=== PATIENT | female | born 1955 | race Two or more races ===

== ENCOUNTER → 2024-02-07 | Outpatient (CLI) | payer MEDICARE, SELFPAY ==
[2024-02-07 16:54] LABS: Amphetamine/Methamp Scrn,U Negative (Negative); Barbiturate Screen,Urine Negative (Negative); Benzodiazepines Screen,Urine Negative (Negative); Benzoylecgonine Screen, Ur Negative (Negative); Fentanyl Screen,Urine Negative (Negative); Opiate Screen,Urine Positive (Negative); THC Screen,Urine Negative (Negative)
== END | disposition home or self-care (01) ==
LOC: SLDO 15:46
PROVIDERS: PCP Registered Nurse; Referring Provider Registered Nurse; Visit Provider Registered Nurse
DX: Z79.891 Long term (current) use of opiate analgesic (principal)
CPT/HCPCS: 80307

== ENCOUNTER → 2024-02-14 | Outpatient (CLI) | payer MEDICARE, SELFPAY ==
[2024-02-14 13:23] LABS: Collection Type, Urine Clean Catch
[2024-02-14 13:44] LABS: Basophils % (Auto) 1 % (0-2.5); Eosinophils # (Auto) 0.3 Thou/mm3 (0.0-0.5); Eosinophils % (Auto) 4 % (0-10); Hematocrit 32.3 % (36.0-46.0); Hemoglobin 10.8 g/dL (12.0-16.0); Immature Granulocytes % (Auto) 1 % (0-0); Immature Granulocytes Auto 0.07 Thou/mm3 (0.00-0.00); Lymphocytes # (Auto) 2.8 Thou/mm3 (1.0-4.8); Lymphocytes % (Auto) 36 % (10-50); Mean Corpuscular HGB Conc 33.4 g/dl (31.0-37.0); Mean Corpuscular Hemoglobin 30.5 pg (25.0-35.0); Mean Corpuscular Volume 91 fL (80-100); Monocytes # (Auto) 0.7 Thou/mm3 (0.0-0.8); Monocytes % (Auto) 9 % (0-12); Neutrophils % (Auto) 51 % (37-80); Nucleated Red Blood Cell % 0 /100 WBC (0); Platelet Count 214 Thou/mm3 (140-440); Red Blood Count 3.54 Miln/mm3 (4.00-5.20); White Blood Count 7.8 Thou/mm3 (3.6-11.0)
[2024-02-14 13:48] LABS: Bilirubin,Urine Negative (Negative); Blood,Urine Negative (Negative); Clarity,Urine Clear (Clear/Hazy); Color,Urine Lt-Yellow (Lt Yel-Yel); Glucose, Urine Negative (Negative); Ketones,Urine Negative (Negative); Leukocyte Esterase,Urine Negative (Negative); Nitrite,Urine Negative (Negative); Protein,Urine 1+ (Neg - Trace); RBC,Urine 2 /hpf (0-3); Specific Gravity,Urine 1.013 (1.001-1.035); Squamous Epithelial Cell,Urine < 1 /hpf (0-5); Urobilinogen,Urine Negative mg/dL (0.0-1.0); WBC,Urine 2 /hpf (0-5)
[2024-02-14 14:07] LABS: Albumin, Serum 4.2 gm/dL (3.4-4.8); Anion Gap 3 (7-16); BUN/Creatinine Ratio 20 Ratio (12-20); Blood Urea Nitrogen 36 mg/dL (9-23); Calcium 9.5 mg/dL (8.3-10.6); Calcium (Corrected) 9.5 mg/dL (8.5-10.1); Carbon Dioxide 25.3 mMol/L (20.0-31.0); Chloride 110 mMol/L (98-107); Creatinine (Component) 1.8 mg/dL (0.6-1.3); Glucose 128 mg/dL (74-106); Osmolality,Calculated 285 (275-295); Phosphorous 3.9 mg/dL (2.4-5.1); Potassium 4.1 mMol/L (3.4-5.1); Sodium 138 mMol/L (136-145); eGFR 30 See Note
== END | disposition home or self-care (01) ==
LOC: COPL 12:55
PROVIDERS: PCP Registered Nurse; Referring Provider Internal Medicine; Visit Provider Internal Medicine
DX: N17.9 Acute kidney failure, unspecified (principal)
CPT/HCPCS: 36415; 80069; 81001; 85025

== ENCOUNTER → 2024-03-06 | Outpatient (CLI) | payer MEDICARE, SELFPAY ==
--- NOTE | 2024-03-06 15:47 | XR_ITS ---
Examination: Renal sonogram Renal Doppler sonographic evaluation of the kidneys Exam date and time: March 06, 2024 1600 hrs. Indications: Renal insufficiency, hypertension, clinical diagnosis renal artery stenosis Technique And Findings: Multiple grayscale sonographic images kidneys Assessment bilateral peak systolic arterial velocities, calculation resistive indices and renal aortic ratios No elevation of bilateral peak systolic arterial velocities No significant abnormal bilateral resistive indices Normal bilateral renal aortic ratios Impression: Small bilateral kidneys with renal cortical thinning No sonographic findings of renal artery stenosis
== END | disposition home or self-care (01) ==
PROVIDERS: PCP Internal Medicine; Referring Provider Internal Medicine; Visit Provider Internal Medicine
DX: N28.89 Other specified disorders of kidney and ureter (principal)
CPT/HCPCS: 93975

== ENCOUNTER → 2024-03-13 | Outpatient (CLI) | payer MEDICARE, SELFPAY ==
[2024-03-13 10:58] LABS: Collection Type, Urine Clean Catch; RBC,Urine 0 /hpf (0-3)
[2024-03-13 11:17] LABS: Basophils # (Auto) 0.1 Thou/mm3 (0.0-0.2); Basophils % (Auto) 1 % (0-2.5); Eosinophils # (Auto) 0.4 Thou/mm3 (0.0-0.5); Eosinophils % (Auto) 6 % (0-10); Hematocrit 35.3 % (36.0-46.0); Hemoglobin 12.1 g/dL (12.0-16.0); Immature Granulocytes % (Auto) 1 % (0-0); Immature Granulocytes Auto 0.06 Thou/mm3 (0.00-0.00); Lymphocytes # (Auto) 2.6 Thou/mm3 (1.0-4.8); Lymphocytes % (Auto) 32 % (10-50); Mean Corpuscular HGB Conc 34.3 g/dl (31.0-37.0); Mean Corpuscular Hemoglobin 30.5 pg (25.0-35.0); Mean Corpuscular Volume 89 fL (80-100); Monocytes # (Auto) 0.6 Thou/mm3 (0.0-0.8); Monocytes % (Auto) 8 % (0-12); Neutrophils # (Auto) 4.2 Thou/mm3 (1.8-7.7); Neutrophils % (Auto) 53 % (37-80); Nucleated Red Blood Cell % 0 /100 WBC (0); Platelet Count 225 Thou/mm3 (140-440); RDW Standard Deviation 42.7 fL (36.4-46.3); Red Blood Count 3.97 Miln/mm3 (4.00-5.20)
[2024-03-13 11:19] LABS: Bacteria,Urine Rare; Bilirubin,Urine Negative (Negative); Blood,Urine Negative (Negative); Clarity,Urine Clear (Clear/Hazy); Color,Urine Lt-Yellow (Lt Yel-Yel); Glucose, Urine Negative (Negative); Ketones,Urine Negative (Negative); Leukocyte Esterase,Urine Negative (Negative); Nitrite,Urine Negative (Negative); PH,Urine 6.5 (5.0-7.0); Protein,Urine 1+ (Neg - Trace); Specific Gravity,Urine 1.007 (1.001-1.035); Squamous Epithelial Cell,Urine 1 /hpf (0-5); Urobilinogen,Urine Negative mg/dL (0.0-1.0); WBC,Urine < 1 /hpf (0-5)
[2024-03-13 11:30] LABS: Albumin, Serum 4.3 gm/dL (3.4-4.8); Anion Gap 5 (7-16); BUN/Creatinine Ratio 20 Ratio (12-20); Blood Urea Nitrogen 26 mg/dL (9-23); Calcium 9.3 mg/dL (8.3-10.6); Calcium (Corrected) 9.3 mg/dL (8.5-10.1); Carbon Dioxide 26.6 mMol/L (20.0-31.0); Chloride 105 mMol/L (98-107); Creatinine (Component) 1.3 mg/dL (0.6-1.3); Glucose 114 mg/dL (74-106); Osmolality,Calculated 279 (275-295); Phosphorous 3.2 mg/dL (2.4-5.1); Potassium 4.5 mMol/L (3.4-5.1); Sodium 137 mMol/L (136-145); eGFR 45 See Note
== END | disposition home or self-care (01) ==
LOC: COPL 10:15
PROVIDERS: PCP Family Medicine; Referring Provider Internal Medicine; Visit Provider Internal Medicine
DX: N17.9 Acute kidney failure, unspecified (principal)
CPT/HCPCS: 36415; 80069; 81001; 85025

== ENCOUNTER → 2024-05-07 | Outpatient (CLI) | payer MEDICARE, SELFPAY ==
[2024-05-07 17:53] LABS: Amphetamine/Methamp Scrn,U Negative (Negative); Barbiturate Screen,Urine Negative (Negative); Benzodiazepines Screen,Urine Negative (Negative); Benzoylecgonine Screen, Ur Negative (Negative); Fentanyl Screen,Urine Negative (Negative); Opiate Screen,Urine Positive (Negative); THC Screen,Urine Negative (Negative)
== END | disposition home or self-care (01) ==
LOC: SLDO 15:36
PROVIDERS: PCP Registered Nurse; Referring Provider Registered Nurse; Visit Provider Registered Nurse
DX: Z79.891 Long term (current) use of opiate analgesic (principal)
CPT/HCPCS: 80307

== ENCOUNTER → 2024-05-12 | Outpatient (CLI) | payer MEDICARE, SELFPAY ==
[2024-05-12 13:46] LABS: Glucose Estimated Average 111 mg/dL (80-131); Hemoglobin A1C 5.5 % Hgb (4.8-6.0)
[2024-05-12 13:54] LABS: Alanine Aminotransferase 22 U/L (10-49); Albumin, Serum 4.4 gm/dL (3.4-4.8); Albumin/Globulin Ratio 1.6 (1.2-2.2); Alkaline Phosphatase 92 U/L (46-116); Anion Gap 8 (7-16); Aspartate Amino Transferase 27 U/L (0-34); BUN/Creatinine Ratio 15 Ratio (12-20); Bilirubin,Total 0.4 mg/dL (0.3-1.2); Blood Urea Nitrogen 27 mg/dL (9-23); Calcium 9.9 mg/dL (8.3-10.6); Calcium (Corrected) 9.9 mg/dL (8.5-10.1); Carbon Dioxide 25.7 mMol/L (20.0-31.0); Chloride 106 mMol/L (98-107); Creatinine (Component) 1.8 mg/dL (0.6-1.3); Free T4 (Free Thyroxine) 1.38 ng/dL (0.89-1.76); Globulin 2.8 gm/dL (2.3-3.5); Glucose 115 mg/dL (74-106); Osmolality,Calculated 285 (275-295); Potassium 4.2 mMol/L (3.4-5.1); Sodium 140 mMol/L (136-145); Thyroid Stimulating Hormone 2.16 uIU/mL (0.55-4.78); Total Protein 7.2 gm/dL (5.7-8.2); eGFR 30 See Note
== END | disposition home or self-care (01) ==
LOC: COPL 12:22
PROVIDERS: PCP Family Medicine; Referring Provider Registered Nurse; Visit Provider Registered Nurse
DX: R94.4 Abnormal results of kidney function studies (principal); E03.9 Hypothyroidism, unspecified; Z68.30 Body mass index [BMI] 30.0-30.9, adult
CPT/HCPCS: 36415; 80053; 83036; 84439; 84443

== ENCOUNTER → 2024-06-09 | Outpatient (CLI) | payer MEDICARE, SELFPAY ==
[2024-06-09 15:01] LABS: Collection Type, Urine Clean Catch; WBC,Urine 0 /hpf (0-5)
[2024-06-09 15:52] LABS: Basophils # (Auto) 0.1 Thou/mm3 (0.0-0.2); Basophils % (Auto) 1 % (0-2.5); Eosinophils # (Auto) 0.4 Thou/mm3 (0.0-0.5); Eosinophils % (Auto) 4 % (0-10); Hematocrit 35.4 % (36.0-46.0); Immature Granulocytes % (Auto) 1 % (0-0); Immature Granulocytes Auto 0.06 Thou/mm3 (0.00-0.00); Lymphocytes # (Auto) 3.8 Thou/mm3 (1.0-4.8); Lymphocytes % (Auto) 41 % (10-50); Mean Corpuscular HGB Conc 33.9 g/dl (31.0-37.0); Mean Corpuscular Volume 89 fL (80-100); Monocytes # (Auto) 0.7 Thou/mm3 (0.0-0.8); Monocytes % (Auto) 7 % (0-12); Neutrophils # (Auto) 4.3 Thou/mm3 (1.8-7.7); Neutrophils % (Auto) 46 % (37-80); Nucleated Red Blood Cell % 0 /100 WBC (0); Platelet Count 253 Thou/mm3 (140-440); RDW Standard Deviation 45.4 fL (36.4-46.3); White Blood Count 9.3 Thou/mm3 (3.6-11.0)
[2024-06-09 15:54] LABS: Bilirubin,Urine Negative (Negative); Blood,Urine Negative (Negative); Clarity,Urine Clear (Clear/Hazy); Color,Urine Lt-Yellow (Lt Yel-Yel); Glucose, Urine Negative (Negative); Ketones,Urine Negative (Negative); Leukocyte Esterase,Urine Negative (Negative); Nitrite,Urine Negative (Negative); Protein,Urine Trace (Neg - Trace); RBC,Urine 1 /hpf (0-3); Specific Gravity,Urine 1.008 (1.001-1.035); Squamous Epithelial Cell,Urine < 1 /hpf (0-5); Urobilinogen,Urine Negative mg/dL (0.0-1.0)
[2024-06-09 16:03] LABS: Albumin, Serum 4.2 gm/dL (3.4-4.8); Anion Gap 6 (7-16); BUN/Creatinine Ratio 16 Ratio (12-20); Blood Urea Nitrogen 26 mg/dL (9-23); Calcium 9.7 mg/dL (8.3-10.6); Calcium (Corrected) 9.7 mg/dL (8.5-10.1); Carbon Dioxide 26.6 mMol/L (20.0-31.0); Chloride 107 mMol/L (98-107); Creatinine (Component) 1.6 mg/dL (0.6-1.3); Glucose 106 mg/dL (74-106); Osmolality,Calculated 284 (275-295); Phosphorous 3.9 mg/dL (2.4-5.1); Potassium 3.8 mMol/L (3.4-5.1); Sodium 140 mMol/L (136-145); eGFR 35 See Note
== END | disposition home or self-care (01) ==
LOC: COPL 14:37
PROVIDERS: PCP Registered Nurse; Referring Provider Internal Medicine; Visit Provider Internal Medicine
DX: I12.9 Hypertensive chronic kidney disease with stage 1 through stage 4 chronic kidney disease, or unspecified chronic kidney disease (principal); N18.30 Chronic kidney disease, stage 3 unspecified
CPT/HCPCS: 36415; 80069; 81001; 85025

== ENCOUNTER → 2024-07-01 | Outpatient (CLI) | payer MEDICARE, SELFPAY ==
--- NOTE | 2024-07-01 13:30 | XR_ITS ---
Examination: Retroperitoneal ultrasound, complete Technique: Multiple high resolution grayscale images of the retroperitoneum obtained, including kidneys and bladder. Exam date and time:July 01, 2024 1327 hours INDICATIONS: History prolapsed bladder 5 months FINDINGS: Right kidney 7.9 cm cortex 1.6 cm Left kidney 7.4 cm cortex 1.2 cm 4 mm calculus upper pole right kidney No hydronephrosis No bladder mass or bladder calculi Bladder prevoid volume 134 cc postvoid volume 0 cc IMPRESSION: Bilateral renal cortical thinning Small kidneys bilaterally 4 mm nonobstructing upper pole right renal calculus
== END | disposition home or self-care (01) ==
PROVIDERS: PCP Registered Nurse; Referring Provider Internal Medicine; Visit Provider Internal Medicine
DX: N27.1 Small kidney, bilateral (principal); N20.0 Calculus of kidney; N28.89 Other specified disorders of kidney and ureter; N17.9 Acute kidney failure, unspecified
CPT/HCPCS: 76770

== ENCOUNTER → 2024-07-22 | Outpatient (CLI) | payer MEDICARE, SELFPAY ==
--- NOTE | 2024-07-22 10:15 | XR_ITS ---
Examination: Screening digital mammography, bilateral Computer aided detection 3-D breast Tomosynthesis, bilateral Date and time of exam: July 22, 2024 0959 hours Compared to mammograms dating to December 05, 2018 Indication: Screening Technique: Nonmagnified MLO, CC views of the breasts to been obtained, reconstructed from 3-D Tomosynthesis images. R2 computer aided detection program utilized for evaluation of suspicious masses and/or abnormal calcifications. 3-D Tomosynthesis images obtained. Findings: Scattered areas of fibroglandular density. Benign calcifications. No interval suspicious masses Impression: BI-RADS category II: Benign Findings. Recommend 1 year follow-up mammogram.
== END | disposition home or self-care (01) ==
LOC: CDIM 09:45
PROVIDERS: Referring Provider Registered Nurse; Visit Provider Registered Nurse
DX: Z12.31 Encounter for screening mammogram for malignant neoplasm of breast (principal); R92.323 Mammographic fibroglandular density, bilateral breasts; R92.1 Mammographic calcification found on diagnostic imaging of breast
CPT/HCPCS: 77063; 77067

== ENCOUNTER → 2024-08-11 | Outpatient (CLI) | payer MEDICARE, SELFPAY ==
[2024-08-11 10:29] LABS: Collection Type, Urine Clean Catch
[2024-08-11 10:44] LABS: Basophils # (Auto) 0.1 Thou/mm3 (0.0-0.2); Basophils % (Auto) 1 % (0-2.5); Eosinophils # (Auto) 0.7 Thou/mm3 (0.0-0.5); Eosinophils % (Auto) 9 % (0-10); Hematocrit 35.9 % (36.0-46.0); Hemoglobin 12.1 g/dL (12.0-16.0); Immature Granulocytes % (Auto) 1 % (0-0); Immature Granulocytes Auto 0.04 Thou/mm3 (0.00-0.00); Lymphocytes # (Auto) 3.1 Thou/mm3 (1.0-4.8); Lymphocytes % (Auto) 39 % (10-50); Mean Corpuscular HGB Conc 33.7 g/dl (31.0-37.0); Mean Corpuscular Hemoglobin 30.2 pg (25.0-35.0); Mean Corpuscular Volume 90 fL (80-100); Monocytes # (Auto) 0.6 Thou/mm3 (0.0-0.8); Monocytes % (Auto) 8 % (0-12); Neutrophils # (Auto) 3.3 Thou/mm3 (1.8-7.7); Neutrophils % (Auto) 42 % (37-80); Nucleated Red Blood Cell % 0 /100 WBC (0); Platelet Count 253 Thou/mm3 (140-440); RDW Standard Deviation 45.1 fL (36.4-46.3); Red Blood Count 4.01 Miln/mm3 (4.00-5.20); White Blood Count 7.8 Thou/mm3 (3.6-11.0)
[2024-08-11 10:52] LABS: Bilirubin,Urine Negative (Negative); Blood,Urine Negative (Negative); Clarity,Urine Clear (Clear/Hazy); Color,Urine Lt-Yellow (Lt Yel-Yel); Glucose, Urine Negative (Negative); Ketones,Urine Negative (Negative); Leukocyte Esterase,Urine Negative (Negative); Nitrite,Urine Negative (Negative); PH,Urine 7.5 (5.0-7.0); Protein,Urine 1+ (Neg - Trace); RBC,Urine 1 /hpf (0-3); Specific Gravity,Urine 1.014 (1.001-1.035); Squamous Epithelial Cell,Urine 1 /hpf (0-5); Urobilinogen,Urine Negative mg/dL (0.0-1.0); WBC,Urine 1 /hpf (0-5)
[2024-08-11 11:07] LABS: Albumin, Serum 4.3 gm/dL (3.4-4.8); Anion Gap 8 (7-16); BUN/Creatinine Ratio 18 Ratio (12-20); Blood Urea Nitrogen 32 mg/dL (9-23); Calcium 9.5 mg/dL (8.3-10.6); Calcium (Corrected) 9.5 mg/dL (8.5-10.1); Carbon Dioxide 27.7 mMol/L (20.0-31.0); Chloride 104 mMol/L (98-107); Creatinine (Component) 1.8 mg/dL (0.6-1.3); Glucose 111 mg/dL (74-106); Osmolality,Calculated 287 (275-295); Phosphorous 3.5 mg/dL (2.4-5.1); Potassium 3.9 mMol/L (3.4-5.1); Sodium 140 mMol/L (136-145); eGFR 30 See Note
[2024-08-11 11:27] LABS: Creatinine,Random Urine 62 mg/dL (30-125)
== END | disposition home or self-care (01) ==
LOC: COPL 08:55
PROVIDERS: PCP Internal Medicine; Referring Provider Family Medicine; Visit Provider Family Medicine
DX: I12.9 Hypertensive chronic kidney disease with stage 1 through stage 4 chronic kidney disease, or unspecified chronic kidney disease (principal); N18.30 Chronic kidney disease, stage 3 unspecified
CPT/HCPCS: 36415; 80069; 81001; 82570; 83970; 85025

== ENCOUNTER → 2024-09-07 | Outpatient (CLI) | payer MEDICARE, SELFPAY ==
--- NOTE | 2024-09-07 14:00 | XR_ITS ---
Examination: Nuclear medicine kidney imaging flow and function multiple studies Date and time: September 07, 2024 1550 hours INDICATIONS: Acute renal failure on laboratory examination this week, hypertension TECHNIQUE AND FINDINGS: Intravenous administration 10.6 mCi technetium 99m MAG3 Flow and function curves generated to 60 minutes Normal right renal flow and function Flow to the left kidney 60% abnormal with mildly impaired left renal function IMPRESSION: Reduced flow to the left kidney with mildly impaired renal function
== END | disposition home or self-care (01) ==
PROVIDERS: PCP Family Medicine; Referring Provider Internal Medicine; Visit Provider Internal Medicine
DX: N28.9 Disorder of kidney and ureter, unspecified (principal)
CPT/HCPCS: 78709; A9562

== ENCOUNTER → 2024-09-25 | Outpatient (CLI) | payer MEDICARE, SELFPAY ==
[2024-09-25 09:58] LABS: Collection Type, Urine Clean Catch
[2024-09-25 10:16] LABS: Bilirubin,Urine Negative (Negative); Blood,Urine Negative (Negative); Clarity,Urine Clear (Clear/Hazy); Color,Urine Lt-Yellow (Lt Yel-Yel); Glucose, Urine Negative (Negative); Ketones,Urine Negative (Negative); Leukocyte Esterase,Urine Negative (Negative); Nitrite,Urine Negative (Negative); PH,Urine 7.0 (5.0-7.0); Protein,Urine 1+ (Neg - Trace); RBC,Urine 2 /hpf (0-3); Specific Gravity,Urine 1.010 (1.001-1.035); Squamous Epithelial Cell,Urine 1 /hpf (0-5); Urobilinogen,Urine Negative mg/dL (0.0-1.0); WBC,Urine 6 /hpf (0-5)
[2024-09-25 10:36] LABS: Albumin, Serum 4.2 gm/dL (3.4-4.8); Anion Gap 10 (7-16); BUN/Creatinine Ratio 13 Ratio (12-20); Blood Urea Nitrogen 24 mg/dL (9-23); Calcium 9.5 mg/dL (8.3-10.6); Calcium (Corrected) 9.5 mg/dL (8.5-10.1); Carbon Dioxide 27.2 mMol/L (20.0-31.0); Chloride 105 mMol/L (98-107); Creatinine (Component) 1.8 mg/dL (0.6-1.3); Glucose 123 mg/dL (74-106); Osmolality,Calculated 288 (275-295); Phosphorous 3.4 mg/dL (2.4-5.1); Potassium 4.2 mMol/L (3.4-5.1); Sodium 142 mMol/L (136-145); eGFR 30 See Note
== END | disposition home or self-care (01) ==
LOC: COPL 09:20
PROVIDERS: PCP Registered Nurse; Referring Provider Internal Medicine; Visit Provider Internal Medicine
DX: N17.9 Acute kidney failure, unspecified (principal)
CPT/HCPCS: 36415; 80069; 81001

== ENCOUNTER 2024-09-29 20:03 | Emergency (ER) | payer MEDICARE, SELFPAY ==
[2024-09-29 21:02] VITALS: BP 150/84; PULSE 93; RESP 22; TEMP 36.8; O2SAT 99; BMI 27.8
--- NOTE | 2024-09-29 21:12 | EKG_ITS ---
[facility] Test Date: 2024-09-29 Pat Name: ELIANE HENRIQUEZ Department: Room: - Gender: Female Computer Field Technician: : [id number] Requested By: Frandy Geller Order Number: [id number] Reading MD: Frandy Geller Measurements Intervals Skillman Rate: 90 P: 15 PA: 152 QRS: -5 QRSD: 108 T: 118 QT: 391 QTc: 479 Interpretive Statements SINUS RHYTHM NONSPECIFIC ST & T-WAVE ABNORMALITY Compared to ECG 09/18/2022 10:01:42 T-wave abnormality now present /store/S0/[id number]/[id number].pdf
--- NOTE | 2024-09-29 21:12 | XR_ITS ---
Examination: PA chest single view Any upright PA chest single view Date and time: September 29, 2024 2154 hours INDICATIONS: Epigastric pain beginning 2 days ago FINDINGS: Normal heart size The lungs are clear. No cystic structures are intact IMPRESSION: No active disease
--- NOTE | 2024-09-29 21:14 | PD.EDABDPN ---
ED Abdominal Pain RME/HPI General Chief Complaint: Abdominal Pain Stated complaint: ABD PAIN Time seen by provider: 09/29/24 21:11 Arrival date/time: 09/29/24 20:03 69F with history of CKD, cholecystectomy, hypothyroidism, anxiety, and HTN presents to ED with 1 day of gradually worsening epigastric pain that radiates to back, as well as N/V. Patient denies dysuria and diarrhea. Limitations: no limitations Related Data Home Medications ?Medication ?Instructions ?Recorded ?Confirmed lorazepam 0.5 mg tablet 1 mg PO BID ##0 05/20/12 09/18/22 ibandronate 150 mg tablet (Boniva) 150 mg PO QMONTH #0 tabs 09/03/16 09/18/22 ropinirole 1 mg tablet (Requip) 1 mg PO BID #0 tabs 03/15/17 09/18/22 hydrocodone 10 mg-acetaminophen 1 tab PO QID PRN Pain 02/15/18 09/18/22 325 mg tablet allopurinol 100 mg tablet 100 mg PO QDAY 09/18/22 09/18/22 ascorbic acid (vitamin C) 1,000 mg 1,000 mg PO Q12H 09/18/22 09/18/22 tablet,extended release (Vitamin C ER) benazepril 40 mg tablet 40 mg PO QDAY 09/18/22 09/18/22 cyclobenzaprine 10 mg tablet 10 mg PO TID 09/18/22 09/18/22 folic acid 1 mg tablet 1 mg PO QDAY 09/18/22 09/18/22 magnesium oxide 400 mg PO QDAY 09/18/22 09/18/22 omega 7-qce-ams-fish oil 1,200 mg 1 cap PO DAILY 09/18/22 09/18/22 (144 mg-216 mg) capsule (Fish Oil) vitamin B complex-vitamin C 100 1 tab PO QDAY 09/18/22 09/18/22 mg-folic acid 1 mg tablet (Dialyvite) Previous Rx's ?Medication ?Instructions ?Recorded meloxicam 7.5 mg tablet 7.5 mg PO QDAY #10 tabs 09/28/22 Allergies Allergy/AdvReac Type Severity Reaction Status Date / Time tizanidine Allergy Intermediate Hives Verified 09/29/24 20:04 ibuprofen Allergy Mild HIVES Verified 09/29/24 20:04 Review of Systems Review of Systems Systems Reviewed: All systems reviewed, normal except as documented Constitutional Constitutional: Reports system reviewed and no additional complaints, except as documented, Denies fever(s) and Denies headache(s) ENT Ears, Nose, Mouth, and Throat: Denies disequilibrium and Denies headache(s) Cardiovascular Cardiovascular: Reports system reviewed and no additional complaints, except as documented, Denies chest pain and Denies dyspnea Respiratory Respiratory: Reports system reviewed and no additional complaints, except as documented, Denies cough and Denies dyspnea Gastrointestinal Gastrointestinal: Reports system reviewed and no additional complaints, except as documented, Reports as per HPI, Reports abdominal pain, Reports nausea and Reports vomiting Neurologic Neurologic: Reports system reviewed and no additional complaints, except as documented, Denies confusion, Denies disequilibrium and Denies headache(s) Psychiatric Psychiatric: Denies confusion Past Medical History Past Medical History NEUROLOGIC: Negative Neurological Disorders or Seizures CARDIAC: Positive Cardiac Disorders, Hypertension and Varicose Veins; Negative Congestive Heart Failure RESPIRATORY: Negative Chronic Obstructive Pulmonary Disease (COPD) GASTROINTESTINAL: Positive Gastrointestinal Disorders and Gall Bladder Disease; Negative Hepatitis GENITOURINARY: Positive Genitourinary Disorders, Renal Disease (Luz Maria) and Kidney Stones REPRODUCTIVE: Positive Previous Pregnancies (3) MUSCULOSKELETAL: Positive Musculoskeletal Disorders, Arthritis and Carpal Tunnel Syndrome (johana) ENT: Positive Glaucoma ENDOCRINE: Positive Endocrine Disorders and Hypothyroidism; Negative Diabetes Mellitus Type 1 or Diabetes Mellitus Type 2 HEMATOLOGIC: Negative Blood Disorders PSYCHO/SOCIAL: Positive Anxiety OTHER HISTORY: Positive Hospitalization (surgery); Negative Autoimmune Disease, Shingles, Falls, Blood Transfusions, Anesthesia Reactions, MRSA or Cancer Family History FAMILY HISTORY: Positive Family Surgery; Negative Family Psychiatric Problems, Family Respiratory Disorders, Family Cardiac Disorders, Family Gastrointestinal Problems, Family Cancer or Family Anesthesia Reaction Surgical History SURGICAL: Positive Hysterectomy; Negative Joint Replacement Social History SMOKING STATUS: Current some day smoker SUBSTANCE USE: does not use ED Exam General Limitations: Present no limitations General appearance: Present alert and in distress Head Head exam: Present atraumatic Eye Eye exam: Present normal appearance, PERRL and EOMI ENT ENT exam: Present normal exam, normal oropharynx and mucous membranes moist Neck Neck exam: Present normal inspection, full ROM and trachea midline Chest Chest inspection: Present normal inspection and symmetric chest wall rise Respiratory Respiratory exam: Present normal lung sounds bilaterally Cardiovascular Cardiovascular exam: Present regular rate, normal rhythm and normal heart sounds Abdominal Exam Abdominal exam: Present soft and normal bowel sounds Abdominal tenderness: Present epigastrium and mild Extremities Exam Extremities exam: Present normal inspection and full ROM Back Exam Back exam: Present normal inspection and full ROM Neurological Exam Neurological exam: Present alert, oriented X3 and CN II-XII intact Psychiatric Psychiatric exam: Present normal affect and normal mood Skin Skin exam: Present warm, dry, intact and normal color Course Quality Measures none Orders Category Date Time Status COVID-19 Screening Questionnaire NOW Care 09/30/24 00:[address] Screening NOW Care 09/29/24 21:56 Completed Decision to Admit X1 Care 09/30/24 00:10 Completed EKG (ED ONLY) *Do not use* NOW Care 09/29/24 21:12 Completed Insert IV NOW Care 09/29/24 21:12 Completed Insert NG / OG tube NOW Care 09/30/24 01:08 Completed MRI Screening NOW Care 09/30/24 01:10 Completed NPO NOW Care 09/30/24 01:15 Completed Referral - Seal Mixing Operator Stat Cons 09/30/24 08:30 Active Diet NPO (NOW) Diet 09/30/24 01:[address] angio chest abdomen pelvis Stat Exams 09/29/24 21:56 Completed EKG (ED Only) Stat Exams 09/29/24 21:12 Draft MR MRCP Stat Exams 09/30/24 Completed US gall bladder Stat Exams 09/30/24 03:05 Completed XR chest 1V portable Stat Exams 09/29/24 21:12 Completed XR chest 1V post procedure Stat Exams 09/30/24 02:29 Completed XR chest 1V post procedure Stat Exams 09/30/24 02:48 Completed Blood Culture (Lab) Stat Lab 09/30/24 04:10 Received CBC Stat Lab 09/29/24 21:19 Completed CMP [Comprehensive Metabolic Panel] Stat Lab 09/30/24 04:10 Completed Comprehensive Metabolic Panel Stat Lab 09/29/24 21:19 Completed D-Dimer Stat Lab 09/29/24 21:19 Completed Drug Screen,Urine Stat Lab 09/29/24 22:13 Completed Lactate (Lactic Acid) Stat Lab 09/29/24 23:06 Completed Lactic Acid, 3 HR Stat Lab 09/30/24 04:10 Completed Lipase Stat Lab 09/29/24 21:19 Completed Partial Thromboplastin Time Stat Lab 09/29/24 21:19 Completed Procalcitonin Stat Lab 09/29/24 23:06 Completed Prothrombin Time with INR Stat Lab 09/29/24 21:19 Completed Troponin I Stat Lab 09/29/24 21:19 Completed Urinalysis, C/S if Indicated Stat Lab 09/29/24 22:13 Completed Morphine Inj Med 09/30/24 01:08 Discontinued 5 mg IVP Q4H PRN Morphine Inj Med 09/29/24 21:12 Discontinued 5 mg IVP X1 ONE Ondansetron Inj [Zofran Inj] Med 09/30/24 01:08 Discontinued 4 mg IV Q4H PRN Ondansetron Inj [Zofran Inj] Med 09/29/24 21:12 Discontinued 4 mg IV X1 ONE Piper/Tazo 3.375 gm Premix [Zosyn] Med 09/30/24 03:00 Discontinued 3.375 gm in 50 ml IV X1 Ringers Lactated 1000 ml [Lactated Ringers] 1,000 ml Med 09/30/24 04:01 Discontinued IV 500 mls/hr Ringers Lactated 1000 ml [Lactated Ringers] 1,000 ml Med 09/30/24 00:10 Discontinued IV 999 mls/hr Vital Signs Vital signs: Vital Signs Temperature 98.3 F 09/29/24 21:02 Pulse Rate 93 09/29/24 21:02 Respiratory Rate 22 H 09/29/24 21:02 Blood Pressure 150/84 H 09/29/24 21:02 Pulse Oximetry (%) 99 09/29/24 21:02 Oxygen Delivery Method Room Air 09/29/24 21:02 O2 at 99% on RA and WNLs Abdominal Pain MDM MDM Narrative MDM Narrative:: 69F with history of CKD, cholecystectomy, hypothyroidism, anxiety, and HTN presents to ED with 1 day of gradually worsening epigastric pain that radiates to back, as well as N/V. Patient denies dysuria and diarrhea. Physical exam reveals mild epigastric tenderness. Patient is afebrile, alert, but appears to be in pain. CTA shows SBO. CBD is dilated, but was likely just due to post-surgical status. Previous CBD was also dilated in 2022. Biliary labs normal. Lipase normal. Cr 1.8. Moderate leukocytosis. Lactate 2.6, but procal normal. EKG is NSR. CXR unremarkable. Trop normal. D-dimer elevated. Spoke to Dr. Jane, who states can bowel series and he can consult. Spoke to IM resident who reports to Dr. Lopez, who wants MRCP prior to admission. NGT placed. Sepsis alert was called due to leukocytosis and elevated lactate. No true fever, but temp was increasing. Upon reassessment and IVF, patient feeling better repeat lactate returned to WNLs. Care signed out to Dr. Watts pending MRCP and dispo. Patient eventually found to have CBD stone. Patient transferred to [facility]. Patient data External records reviewed:: [facility] previous records Clinical information provided by:: patient Social determinants that could affect healthcare access:: mental health Patient has the following chronic illnesses:: CKD, cholecystectomy, hypothyroidism, anxiety, and HTN How is presenting disease/condition affected by chronic disease/condition?: no chronic disease Evaluation data The following diagnostics were reviewed and interpreted by me:: lab results, radiology exam(s) and EKG tracing(s) Lab and/or radiology exams considered but not ordered:: ordered Interpretation Summary: above Medications / Prescriptions Medications or Prescriptions considered but not ordered:: ordered Medication administrations:: Medication Administration History Discontinued Medications Lactated Ringer's (Lactated Ringers) 1,000 mls @ 999 mls/hr IV .Q1H1M ONE Stop: 09/30/24 01:10 Last Infusion: 09/30/24 04:43 Dose: Infused Documented By: Admin: 09/30/24 02:35 Dose: 999 mls/hr Documented By: IVTA Piperacillin/Tazobactam/Dextrose (Zosyn) 3.375 gm in 50 mls @ 100 mls/hr IV X1 ONE Stop: 09/30/24 03:29 Last Infusion: 09/30/24 06:03 Dose: Infused Documented By: Admin: 09/30/24 04:42 Dose: 100 mls/hr Documented By: VITA Lactated Ringer's (Lactated Ringers) 1,000 mls @ 500 mls/hr IV .Q2H ONE Stop: 09/30/24 06:00 Last Infusion: 09/30/24 07:01 Dose: Infused Documented By: Admin: 09/30/24 04:43 Dose: 500 mls/hr Documented By: VITA Morphine Sulfate (Morphine Sulf Inj 10 Mg/Ml Vial) 5 mg IVP X1 ONE Stop: 09/29/24 21:13 Last Admin: 09/29/24 22:38 Dose: 5 mg Documented By: CVL Morphine Sulfate (Morphine Sulf Inj 10 Mg/Ml Vial) 5 mg IVP Q4H PRN PRN Reason: PAIN SCALE 7-10 (Severe Last Admin: 09/30/24 06:00 Dose: 5 mg Documented By: Admin: 09/30/24 01:46 Dose: 5 mg Documented By: CVL Ondansetron HCl (Ondansetron Inj 2 Mg/Ml Inj 2 Ml) 4 mg IV X1 ONE; Protocol Stop: 09/29/24 21:13 Last Admin: 09/29/24 22:37 Dose: 4 mg Documented By: CVL Ondansetron HCl (Ondansetron Inj 2 Mg/Ml Inj 2 Ml) 4 mg IV Q4H PRN; Protocol PRN Reason: nausea Stop: 10/30/24 01:07 Last Admin: 09/30/24 01:45 Dose: 4 mg Documented By: CVL above Consultations Consultation(s) initiated? (list below): Yes Diagnosis Differential diagnosis abdominal pain: abdominal pain, acute appendicitis, calculus of kidney, constipation, diverticulitis, endometriosis, gastroenteritis, pancreatitis, small bowel obstruction and other (aortic dissection, ACS) Most likely diagnosis given after review of the tests above:: SBO and CBD stone Admission Indicated Admission indicated?: not indicated Explain why admission is indicated or not indicated:: transfer Admission Request Was there a request for admission?: Yes Admission Attestation Admission request attestation: Discussed case with [Dr. Lopez] from Hospitalist service regarding admission. Discussed patients ED course, exam findings, labs, and radiology results. The Hospitalist [declines] to accept the patient for admission. Disposition Plan Disposition Plan: Transfer Discharge Plan Plan Patient Disposition: [facility] Facility Pt Being Transferred to: [facility] Service Needed for Transfer: Gastroenterology Discharge Disposition comment: GI Dr. Johnson accepted Patient condition on transfer: Stable Prescriptions/Referrals Prescriptions/Med Rec: No Action lorazepam 0.5 MG tablet 1 mg PO BID Qty: 0 ibandronate [Boniva] 150 MG tablet 150 mg PO QMONTH Qty: 0 ropinirole [Requip] 1 MG tablet 1 mg PO BID Qty: 0 hydrocodone-acetaminophen 10-325 mg Tablet 1 tab PO QID PRN (Reason: Pain) meloxicam 7.5 mg tablet 7.5 mg PO QDAY Qty: 10 0RF cyclobenzaprine 10 mg Tablet 10 mg PO TID allopurinol 100 mg Tablet 100 mg PO QDAY folic acid 1 mg Tablet 1 mg PO QDAY benazepril 40 mg Tablet 40 mg PO QDAY Dialyvite 100-1 mg Tablet 1 tab PO QDAY Vitamin C 1,000 mg Tablet Extended Release 1,000 mg PO Q12H omega 1-smw-ypb-fish oil [Fish Oil] 1,200 (144-216) mg Capsule 1 cap PO DAILY magnesium oxide 400 mg magnesium Tablet 400 mg PO QDAY Referrals: No Primary/Family,Physician [Primary Care Provider] - In 1 week Problem List Clinical Impression: Common bile duct (CBD) obstruction, Small bowel obstruction Patient/Caregiver Discharge Instructions Print Language: Serbian Stand Alone Forms: Nella Award Info., Patient Portal Info Letter
[2024-09-29 21:31] LABS: Basophils # (Auto) 0.0 Thou/mm3 (0.0-0.2); Basophils % (Auto) 0 % (0-2.5); Eosinophils # (Auto) 0.1 Thou/mm3 (0.0-0.5); Eosinophils % (Auto) 0 % (0-10); Hematocrit 39.7 % (36.0-46.0); Hemoglobin 13.7 g/dL (12.0-16.0); Immature Granulocytes Auto 0.06 Thou/mm3 (0.00-0.00); Lymphocytes # (Auto) 3.2 Thou/mm3 (1.0-4.8); Lymphocytes % (Auto) 22 % (10-50); Mean Corpuscular HGB Conc 34.5 g/dl (31.0-37.0); Mean Corpuscular Hemoglobin 30.4 pg (25.0-35.0); Mean Corpuscular Volume 88 fL (80-100); Monocytes # (Auto) 0.8 Thou/mm3 (0.0-0.8); Monocytes % (Auto) 5 % (0-12); Neutrophils # (Auto) 10.4 Thou/mm3 (1.8-7.7); Neutrophils % (Auto) 71 % (37-80); Nucleated Red Blood Cell # 0.00 Thou/mm3 (0.00-0.00); Nucleated Red Blood Cell % 0 /100 WBC (0); Platelet Count 286 Thou/mm3 (140-440); RDW Standard Deviation 44.5 fL (36.4-46.3); Red Blood Count 4.51 Miln/mm3 (4.00-5.20); White Blood Count 14.5 Thou/mm3 (3.6-11.0)
[2024-09-29 21:47] LABS: INR 0.9 (0.9-1.3); Partial Thromboplastin Time 23.2 Seconds (22.0-36.0); Prothrombin Time 10.3 Seconds (9.0-12.2)
[2024-09-29 21:48] LABS: Alanine Aminotransferase 18 U/L (10-49); Albumin, Serum 4.6 gm/dL (3.4-4.8); Albumin/Globulin Ratio 1.3 (1.2-2.2); Alkaline Phosphatase 86 U/L (46-116); Anion Gap 14 (7-16); Aspartate Amino Transferase 24 U/L (0-34); BUN/Creatinine Ratio 11 Ratio (12-20); Bilirubin,Total 0.7 mg/dL (0.3-1.2); Blood Urea Nitrogen 19 mg/dL (9-23); Calcium 10.0 mg/dL (8.3-10.6); Calcium (Corrected) 10.0 mg/dL (8.5-10.1); Carbon Dioxide 21.9 mMol/L (20.0-31.0); Chloride 103 mMol/L (98-107); Creatinine (Component) 1.8 mg/dL (0.6-1.3); Estimated Creatinine Clearance 32.7 mL/min (>60); Globulin 3.5 gm/dL (2.3-3.5); Glucose 164 mg/dL (74-106); Lipase 29 U/L (12-53); Osmolality,Calculated 283 (275-295); Potassium 3.4 mMol/L (3.4-5.1); Sodium 139 mMol/L (136-145); Total Protein 8.1 gm/dL (5.7-8.2); Troponin I < 0.020 ng/mL (0.0-0.045); eGFR 30 See Note
[2024-09-29 21:51] LABS: D-Dimer 1820 ng/mL (<600)
--- NOTE | 2024-09-29 21:56 | XR_ITS ---
Examination: CTA chest, with intravenous contrast. CTA abdomen, with intravenous contrast. CTA pelvis, with intravenous contrast. 2-D sagittal and coronal reconstructions. 3-D reconstructions. Date and time of exam: September 29, 2024, 10:54 PM INDICATIONS: Epigastric pain chest pain nausea vomiting CTDI vol (mgy) 12.1 DLP (MGycm) 8:30 Technique: Multiple CTA images, 2.0 mm slice thickness, obtained chest, abdomen, pelvis, with the high-resolution 64 slice scanner. 60 cc Isovue 300 is administered intravenously. Sagittal and coronal 2-D reconstructions are obtained. 3-D reconstructions, angiographic images are obtained. 3-D postprocessing, including vascular maximum intensity projections. Low dose protocols were performed. One or more of the following dose reduction techniques were used; automated exposure control, adjustment of the mA and/or KV according to patient size, use of iterative reconstruction technique. Findings: No thoracic aortic aneurysm dilatation or dissection Pulmonary artery opacification is reduced which is not a function of the contrast dose but contrast timing No filling defects noted No mediastinal lymphadenopathy 6 mm pulmonary nodule left upper lobe No pneumonia or pulmonary edema No visualized liver or splenic lesion Absent gallbladder The common bile duct is enlarged 17 mm There is mild dilatation of the pancreatic duct The pancreatic head measures 27 mm There are multiple fluid-filled distended small bowel loops in the abdomen Abdominal aorta is intact There is severe scarring both kidneys no hydronephrosis Normal appendix Absent uterus No pelvic mass Prominent osteopenia with grade 1 anterolisthesis of L4 on L5 IMPRESSION: No thoracic or abdominal aortic aneurysmal dilatation No pulmonary artery emboli, limited opacification of the pulmonary arteries which is a contrast bolus timing error 6 mm pulmonary nodule left upper lobe, recommend continued 6 month follow-up CT chest without contrast Enlarged common bile duct 17 mm, recommend hepatobiliary sonography follow-up Small bowel obstruction pattern, recommend Gastrografin small bowel series follow-up Severe scarring both kidneys, no hydronephrosis
[2024-09-29 22:18] LABS: Collection Type, Urine Clean Catch
[2024-09-29] MEDS: ONDANSETRON INJ 2 MG/ML INJ 2 ML 4 MG IV (22:37)
[2024-09-29] MEDS: MORPHINE SULF INJ 10 MG/ML VIAL 5 MG IVP (22:38)
[2024-09-29 22:41] LABS: Amorphous Crystals,Urine Present (Absent); Bacteria,Urine Rare; Bilirubin,Urine Negative (Negative); Blood,Urine Negative (Negative); Clarity,Urine Turbid (Clear/Hazy); Color,Urine Yellow (Lt Yel-Yel); Culture Indicated,Urine Not Indicated; Glucose, Urine Negative (Negative); Ketones,Urine 1+ (Negative); Leukocyte Esterase,Urine Negative (Negative); Nitrite,Urine Negative (Negative); PH,Urine 7.0 (5.0-7.0); Protein,Urine 3+ (Neg - Trace); RBC,Urine 3 /hpf (0-3); Specific Gravity,Urine 1.026 (1.001-1.035); Squamous Epithelial Cell,Urine 36 /hpf (0-5); Urobilinogen,Urine Negative mg/dL (0.0-1.0); WBC,Urine 2 /hpf (0-5)
[2024-09-29 22:47] LABS: Amphetamine/Methamp Scrn,U Negative (Negative); Barbiturate Screen,Urine Negative (Negative); Benzodiazepines Screen,Urine Negative (Negative); Benzoylecgonine Screen, Ur Negative (Negative); Fentanyl Screen,Urine Negative (Negative); Opiate Screen,Urine Positive (Negative); THC Screen,Urine Negative (Negative)
[2024-09-29 23:04] VITALS: PULSE 70; RESP 20; TEMP 37.5
[2024-09-29 23:22] LABS: Lactate (Lactic Acid) 2.6 mMol/L (0.4-2.0)
[2024-09-29 23:48] LABS: Procalcitonin 0.08 ng/ml (0.0-0.49)
--- NOTE | 2024-09-30 | XR_ITS ---
MRI abdomen, without contrast. MRCP Date and time of exam: September 30, 2024, 0729 hours INDICATIONS: Worsening epigastric pain with nausea vomiting today, dilated common bile duct and stone in the common bile duct on ultrasound examination this morning Technique: Multiple axial and coronal images of the abdomen have been obtained with the Siemens 1.5T MRI scanner. Images obtained included T1 weighted transverse images, T2-weighted transverse images, T2-weighted transverse images fat-suppressed, T2 weighted haste fat suppressed transverse images, T1 weighted images, in and out of phase images, T2-weighted coronal images, breath hold, T2 weighted haze coronal images as well as T2 weighted coronal thick slab images, MRCP. Findings: Intrahepatic biliary tract dilatation Common bile duct 14 mm Meniscus defect in the distal common bile duct, 6 mm Dilated pancreatic duct No pancreatic mass Spleen not enlarged Significantly scarred kidneys No ascites IMPRESSION: 6 mm impacted stone in the distal common bile duct, recommend ERCP follow-up
[2024-09-30] MEDS: ONDANSETRON INJ 2 MG/ML INJ 2 ML 4 MG IV (01:45)
[2024-09-30] MEDS: MORPHINE SULF INJ 10 MG/ML VIAL 5 MG IVP ×2 (01:46→06:00)
[2024-09-30 02:05] VITALS: BP 144/73; PULSE 83; RESP 22; O2SAT 100
[2024-09-30 02:21] LABS: Reflex Lactate? Y
--- NOTE | 2024-09-30 02:29 | XR_ITS ---
Examination: AP chest single view TECHNIQUE: AP portable upright chest single view Date and time: September 30, 2024, 0234 hours Comparison September 29, 2024 INDICATIONS: Post orogastric tube placement FINDINGS: Orogastric tube tip in the stomach satisfactory position No significant cardiac enlargement No pneumonia IMPRESSION: Orogastric tube in the stomach satisfactory position
[2024-09-30] MEDS: RINGERS LACTATED 1000 ML 1,000 ML 999 ML IV (02:35)
--- NOTE | 2024-09-30 02:48 | XR_ITS ---
Examination: AP chest single view TECHNIQUE: AP portable upright chest single view Date and time: September 30, 2024, 0256 hours INDICATIONS: Post orogastric tube placement FINDINGS: Orogastric tube tip in stomach satisfactory position Chest is otherwise unchanged IMPRESSION: Orogastric tube tip in the stomach
[2024-09-30 02:51] VITALS: BP 144/73; PULSE 82; RESP 21; TEMP 37.9
--- NOTE | 2024-09-30 03:05 | XR_ITS ---
Examination: Abdomen sonogram, Limited Date and time of exam: September 30, 2024, 0315 hours INDICATIONS: Epigastric pain today with enlarged common bile duct on CT examination yesterday Technique: Real-time rousseau scale transabdominal sonographic images of the upper abdomen obtained. Findings: Absent gallbladder Enlarged common bile duct 17 mm, suspicious for 7 mm common bile duct stone Dilated pancreatic duct 5 mm pancreatic tail 3.0 cm Liver 13.7 cm mildly irregular contour of fatty infiltration Normal hepatopedal portal venous flow Patent IVC IMPRESSION: Suspicious for 7 mm common bile duct stone, recommend MRCP follow-up
--- NOTE | 2024-09-30 03:53 | PRELIM_ITS ---
Radiograph of the chest (single view). September 30, 2024 0254 hours Clinical history: NG Tube placement Comparison: No prior study is available for comparison. Findings: The nasogastric catheter is appropriately positioned with its tip in the region of the stomach. The heart, mediastinum and pulmonary nubia are unremarkable. The lungs are clear. There is no pleural effusion. The bony thorax is unremarkable. Impression: Nasogastric catheter is appropriately positioned with its tip in the region of the stomach. Report Electronically Signed By: Pascual Wray 09/30/2024 3:53:00 AM [EST]
[2024-09-30 04:15] VITALS: BP 144/73; PULSE 88; RESP 20; O2SAT 94
[2024-09-30 04:17] LABS: Lactic Acid, 3 HR 1.5 mMol/L (0.4-2.0)
[2024-09-30] MEDS: PIPER/TAZO 3.375 GM PREMIX 3.375 GM/50 ML BAG IV (04:42)
[2024-09-30] MEDS: RINGERS LACTATED 1000 ML 1,000 ML 500 ML IV (04:43)
--- NOTE | 2024-09-30 04:59 | PC.NURSE ---
NG TUBE PLACEMENT CONFIRMED BY XRAY Nasogastric catheter is appropriately positioned with its tip in the region of the stomach
[2024-09-30 05:12] LABS: Alanine Aminotransferase 28 U/L (10-49); Albumin, Serum 4.2 gm/dL (3.4-4.8); Albumin/Globulin Ratio 1.5 (1.2-2.2); Alkaline Phosphatase 79 U/L (46-116); Anion Gap 11 (7-16); Aspartate Amino Transferase 44 U/L (0-34); BUN/Creatinine Ratio 13 Ratio (12-20); Bilirubin,Total 0.5 mg/dL (0.3-1.2); Blood Urea Nitrogen 25 mg/dL (9-23); Calcium 9.4 mg/dL (8.3-10.6); Calcium (Corrected) 9.4 mg/dL (8.5-10.1); Carbon Dioxide 27.0 mMol/L (20.0-31.0); Chloride 103 mMol/L (98-107); Creatinine (Component) 1.9 mg/dL (0.6-1.3); Estimated Creatinine Clearance 31.0 mL/min (>60); Globulin 2.8 gm/dL (2.3-3.5); Glucose 144 mg/dL (74-106); Osmolality,Calculated 288 (275-295); Potassium 3.6 mMol/L (3.4-5.1); Sodium 141 mMol/L (136-145); Total Protein 7.0 gm/dL (5.7-8.2); eGFR 28 See Note
[2024-09-30 05:56] VITALS: BP 164/89; PULSE 85; RESP 24; TEMP 36.9; O2SAT 98
--- NOTE | 2024-09-30 05:58 | PRELIM_ITS ---
Gallbladder ultrasound. September 30, 2024 at 0315 hours Clinical history: Epigastric pain 1 day, enlarged CBD seen on CT. No prior study is available for comparison. Findings: The visualized liver demonstrates slightly irregular contour and increased echogenicity without mass or ductal dilatation. The main portal vein is patent and demonstrates hepatopetal flow. The gallbladder is surgically absent. The common duct is dilated, measuring 1.7 cm and with 0.7 cm calculus. There is dilated pancreatic duct, measuring 0.5 cm. The inferior vena cava is patent. Impression: 1. Status post cholecystectomy. Dilated common bile duct with a possible choledocholithiasis. Recommend clinical correlation and further evaluation with MRCP, if clinically indicated. 2. Dilated pancreatic duct. 3. Findings suggestive of cirrhosis of the liver. Report Electronically Signed By: Pascual Wray 09/30/2024 5:57:40 AM [EST]
--- NOTE | 2024-09-30 06:57 | PD.EDADDENDU ---
Emergency Room Addendum Addendum Narrative: 0600: Care assumed from MIRIAM Geller, the previous shift emergency physician. Past medical, surgical, social and family history reviewed. Vitals and home medications reviewed. I will assume the care of the patient at this time, pending MRCP and final disposition. Please refer to the emergency department record for history and examination from initial visit.?The following addendum documentation note is intended to reflect any pending information, findings, or radiology results not included in the patient?s initial chart. GI Dr. Lazcano was contacted and states he is out of town until next week. 0830: I spoke with transfer nurse and made aware of plan to transfer. 919: I spoke with GI Dr. Johnson at [facility]. Discussed patients PMHx, HPI, ED course, exam findings, labs, and radiology results. He accepts the patient for transfer. 1135: EMS here to transfer patient. Patient remains clinically stable and was transferred in stable condition.
--- NOTE | 2024-09-30 07:10 | PC.LAC ---
PT LYING IN GURNEY TO ER WITH ABD PAIN NG TUBE NOTED TO RIGHT NARE COINNECTED TO INTERMITTENT SUCTION. GREENISH STOMACH CONTENTS NOTED IN CANISTER. SKIN WARM DRY AND PINK PT DENIES PAIN, MRI ON THEIR WAY TO TAKE PT FOR EXAM
[2024-09-30 07:14] VITALS: BP 147/80; PULSE 89; RESP 17; TEMP 37.1; O2SAT 93
--- NOTE | 2024-09-30 08:06 | PC.NURSE ---
PT WALKED TO AND FROM RESTROOM, PT BACK IN BED RECONNECTED TO INTERMITTENT SUCTION OF THE NG TUBE
--- NOTE | 2024-09-30 08:58 | PC.CM ---
Addendum entered by oRsa Doshi RN 09/30/24 16:27: Patient accepted at [facility] with Dr. Johnson. Patient left at 11:30. Addendum entered by Rosa Doshi RN 09/30/24 09:20: 0910 Lindsay with the transfer center at [facility] called and she wanted to speak to Dr. Watts. I transferred the call. Original Note: 829 I recieved a call from Dr. Watts stating patient needs to be transferred for ERCP. She states she reached out to Dr. Lazcano and he cannot see patient. I will sent to [facility] and start packet.
[2024-09-30 10:36] VITALS: BP 131/70; PULSE 92; RESP 16; TEMP 37.1; O2SAT 95
--- NOTE | 2024-09-30 11:30 | PC.NURSE ---
Addendum entered by Savita Patel RN 09/30/24 11:36: report given Original Note: Patient had a total of 1000ml greenish brown emesis noted in NG tube canister. [employer] [facility] here to transport patient to [facility], ER to ER transfer.
== END 2024-09-30 11:35 | disposition short-term general hospital (02) ==
PROVIDERS: Physician Assistant; Emergency Provider Emergency Medicine
DX: K56.609 Unspecified intestinal obstruction, unspecified as to partial versus complete obstruction (principal); K83.1 Obstruction of bile duct; R10.13 Epigastric pain; R94.31 Abnormal electrocardiogram [ECG] [EKG]; I12.9 Hypertensive chronic kidney disease with stage 1 through stage 4 chronic kidney disease, or unspecified chronic kidney disease; N18.9 Chronic kidney disease, unspecified; F17.210 Nicotine dependence, cigarettes, uncomplicated; Z75.1 Person awaiting admission to adequate facility elsewhere
CPT/HCPCS: 36415; 71045; 71275; 74174; 74181; 76705; 80053; 80307; 81001; 83605; 83690; 84145; 84484; 85025; 85379; 85610; 85730; 87040; 93005; 96361; 96365; 96375; 96376; 99283; A4649; J2270; J2405; J2543; J7120; Q9967

== ENCOUNTER → 2024-11-17 | Outpatient (CLI) | payer MEDICARE, SELFPAY ==
--- NOTE | 2024-11-17 10:15 | XR_ITS ---
Examination: Retroperitoneal ultrasound, complete Technique: Multiple high resolution grayscale images of the retroperitoneum obtained, including kidneys and bladder. Exam date and time:November 18, 2019 5:10 AM INDICATIONS: Chronic kidney disease stage III diagnosis one year ago FINDINGS: Right kidney 8.9 cm cortex 1.8 cm 13 mm midpole calculus Left kidney 8.4 cm cortex 1.6 cm Significant renal scar formation No bladder mass or bladder calculi Bladder prevoid volume 105 cc unable to void IMPRESSION: Small kidneys with bilateral renal cortical thinning Significant bilateral renal scar formation 13 mm nonobstructing right renal calculus
[2024-11-17 11:24] LABS: Basophils # (Auto) 0.1 Thou/mm3 (0.0-0.2); Basophils % (Auto) 1 % (0-2.5); Eosinophils # (Auto) 0.5 Thou/mm3 (0.0-0.5); Eosinophils % (Auto) 6 % (0-10); Hematocrit 36.8 % (36.0-46.0); Hemoglobin 12.5 g/dL (12.0-16.0); Immature Granulocytes Auto 0.02 Thou/mm3 (0.00-0.00); Lymphocytes # (Auto) 2.6 Thou/mm3 (1.0-4.8); Lymphocytes % (Auto) 36 % (10-50); Mean Corpuscular HGB Conc 34.0 g/dl (31.0-37.0); Mean Corpuscular Hemoglobin 31.3 pg (25.0-35.0); Mean Corpuscular Volume 92 fL (80-100); Monocytes # (Auto) 0.5 Thou/mm3 (0.0-0.8); Monocytes % (Auto) 7 % (0-12); Neutrophils # (Auto) 3.7 Thou/mm3 (1.8-7.7); Neutrophils % (Auto) 50 % (37-80); Nucleated Red Blood Cell # 0.00 Thou/mm3 (0.00-0.00); Nucleated Red Blood Cell % 0 /100 WBC (0); Platelet Count 238 Thou/mm3 (140-440); RDW Standard Deviation 46.5 fL (36.4-46.3); Red Blood Count 4.00 Miln/mm3 (4.00-5.20); White Blood Count 7.3 Thou/mm3 (3.6-11.0)
[2024-11-17 11:31] LABS: Collection Type, Urine Clean Catch; Squamous Epithelial Cell,Urine 0 /hpf (0-5)
[2024-11-17 11:34] LABS: Glucose Estimated Average 114 mg/dL (80-131); Hemoglobin A1C 5.6 % Hgb (4.8-6.0)
[2024-11-17 11:44] LABS: Parathyroid Hormone Intact 33.7 pg/ml (18.5-88.0)
[2024-11-17 11:54] LABS: Albumin, Serum 4.4 gm/dL (3.4-4.8); Anion Gap 9 (7-16); BUN/Creatinine Ratio 12 Ratio (12-20); Blood Urea Nitrogen 19 mg/dL (9-23); Calcium 10.0 mg/dL (8.3-10.6); Calcium (Corrected) 10.0 mg/dL (8.5-10.1); Carbon Dioxide 24.9 mMol/L (20.0-31.0); Chloride 106 mMol/L (98-107); Creatinine (Component) 1.6 mg/dL (0.6-1.3); Glucose 102 mg/dL (74-106); Osmolality,Calculated 281 (275-295); Phosphorous 4.2 mg/dL (2.4-5.1); Potassium 4.0 mMol/L (3.4-5.1); Sodium 140 mMol/L (136-145); eGFR 35 See Note
[2024-11-17 12:07] LABS: Bilirubin,Urine Negative (Negative); Blood,Urine Negative (Negative); Clarity,Urine Clear (Clear/Hazy); Color,Urine Colorless (Lt Yel-Yel); Glucose, Urine 3+ (Negative); Ketones,Urine Negative (Negative); Leukocyte Esterase,Urine Negative (Negative); Nitrite,Urine Negative (Negative); PH,Urine 6.0 (5.0-7.0); Protein,Urine Trace (Neg - Trace); RBC,Urine 10 /hpf (0-3); Specific Gravity,Urine 1.005 (1.001-1.035); Urobilinogen,Urine Negative mg/dL (0.0-1.0); WBC,Urine 2 /hpf (0-5)
== END | disposition home or self-care (01) ==
LOC: CDIM 09:42 → COPL 10:38
PROVIDERS: PCP Registered Nurse; Referring Provider Internal Medicine; Visit Provider Radiology Diagnostic Radiology
DX: N27.1 Small kidney, bilateral (principal); N20.0 Calculus of kidney; N28.89 Other specified disorders of kidney and ureter; N17.9 Acute kidney failure, unspecified; I10 Essential (primary) hypertension
CPT/HCPCS: 36415; 76770; 80069; 81001; 83036; 83970; 85025

== ENCOUNTER → 2025-01-19 | Outpatient (BNVA) | payer MEDICARE, SELFPAY | END | disposition home or self-care (01) | PROVIDERS: PCP Internal Medicine; Referring Provider Internal Medicine; Visit Provider Urology | DX: N20.0 Calculus of kidney (principal); N81.10 Cystocele, unspecified; I12.9 Hypertensive chronic kidney disease with stage 1 through stage 4 chronic kidney disease, or unspecified chronic kidney disease; N18.30 Chronic kidney disease, stage 3 unspecified; N17.9 Acute kidney failure, unspecified; M19.90 Unspecified osteoarthritis, unspecified site | CPT/HCPCS: 81003; 99212; G0463 ==